=== PATIENT | male | born 1980 | race African-American/Black ===

== ENCOUNTER 2017-01-14 12:04 | Emergency (ER) | payer SELFPAY ==
[~2017-01-14] VITALS: Ht 170.2 cm; Wt 104.3 kg
[2017-01-14 12:16] VITALS: BP 154/68
[2017-01-14] MEDS ORDERED: LIDO:MAALOX:DONNATAL 1:1:1 15 ML SINGLE DOSE SWSW ONE (12:30)
[2017-01-14 12:44] LABS: BASO # 0.1 x10^3/uL (0.0-0.2); BASO % 1 % (0-3); EOS % 3 % (0-3); HEMATOCRIT 36.3 % (39.0-53.0); HEMOGLOBIN 12.4 g/dL (13.0-17.5); LYMPH # 2.2 x10^3/uL (1.0-4.8); LYMPH % 40 % (24-48); MEAN CORPUSCULAR HEMOGLOBIN 27 pg (25-35); MEAN CORPUSCULAR HGB CONC 34 g/dL (31-37); MEAN CORPUSCULAR VOLUME 80 fL (79-100); MONO % 6 % (0-9); NEUT % 50 % (31-73); PLATELET COUNT 198 x10^3/uL (140-400); RED BLOOD COUNT 4.52 x10^6/uL (4.30-5.70); RED CELL DISTRIBUTION WIDTH 13.5 % (11.5-14.5); WHITE BLOOD COUNT 5.5 x10^3/uL (4.0-11.0)
[2017-01-14 12:49] LABS: NEG OBC FOB NEG; POS OBC FOB POS
[2017-01-14 12:55] LABS: CALCIUM 8.9 mg/dL (8.5-10.1); CREATININE 0.8 mg/dL (0.7-1.3); GFR 109.4; POTASSIUM 3.8 mmol/L (3.5-5.1)
[2017-01-14] MEDS ORDERED: FAMO40TA57 PO (12:56)
--- NOTE | 2017-01-14 12:56 | PHYS DOC ---
Past Medical History Past Medical History: Hypertension Additional Past Surgical Histo: LYMPHNODE REMOVAL IN 1994 Alcohol Use: None Drug Use: Marijuana Adult General Chief Complaint Chief Complaint: ABDOMINAL PAIN HPI HPI 36-year-old male presenting the emergency department with epigastric abdominal pain and bright red blood per rectum. He states that this started approximately 2 hours ago. He has had a burning pain in his epigastrium that is mild intermittent nonradiating and without alleviating factors. He otherwise has a history of hypertension and is otherwise healthy. Review of systems is negative for chest pain shortness of breath fevers chills nausea vomiting. All other review of systems is negative unless otherwise noted in history of present illness. Review of Systems Review of Systems SEE ABOVE. Current Medications Current Medications Current Medications Medications (Trade) Dose Ordered Sig/Mavis Start Time Stop Time Status Last Admin Dose Admin Multi-Ingredient Mouthwash/Gargle (Gi Cocktail Single Dose) 15 ml 1X ONCE 01/14/17 12:30 01/14/17 12:57 DC Allergies Allergies Allergies Coded Allergies Type Severity Reaction Last Updated Verified No Known Drug Allergies 01/14/17 No Physical Exam Physical Exam Constitutional: Well developed, well nourished, no acute distress, non-toxic appearance. HENT: Normocephalic, atraumatic, bilateral external ears normal, oropharynx moist, no oral exudates, nose normal. [] Eyes: PERRLA, EOMI, conjunctiva normal, no discharge. Neck: Normal range of motion, no tenderness, supple, no stridor. [] Cardiovascular:Heart rate regular rhythm, no murmur Lungs & Thorax: Bilateral breath sounds clear to auscultation [] Abdomen:Soft nontender abdomen without rebound tenderness or guarding present. Negative McBurneys point. Negative Steward sign. No ecchymosis present. Rectal exam showed no obvious hemorrhoid. Stool on gross specimen was visually nonbloody. Skin: Warm, dry, no erythema, no rash. Back: No tenderness, no CVA tenderness. [] Extremities: No tenderness, no cyanosis, no clubbing, ROM intact, no edema. Neurologic: Alert and oriented X 3, normal motor function, normal sensory function, no focal deficits noted. [] Psychologic: Affect normal, judgement normal, mood normal. [] Current Patient Data Vital Signs Vital Signs Date Time Temp Pulse Resp B/P (MAP) Pulse Ox O2 Delivery O2 Flow Rate FiO2 01/14/17 12:13 98.1 82 14 154/68 (96) 99 Room Air 98.1 Lab Values Laboratory Tests Test 01/14/17 12:25 01/14/17 12:35 Stool Occult Blood Positive (NEG) White Blood Count 5.5 x10^3/uL (4.0-11.0) Red Blood Count 4.52 x10^6/uL (4.30-5.70) Hemoglobin 12.4 g/dL (13.0-17.5) L Hematocrit 36.3 % (39.0-53.0) L Mean Corpuscular Volume 80 fL (79-100) Mean Corpuscular Hemoglobin 27 pg (25-35) Mean Corpuscular Hemoglobin Concent 34 g/dL (31-37) Red Cell Distribution Width 13.5 % (11.5-14.5) Platelet Count 198 x10^3/uL (140-400) Neutrophils (%) (Auto) 50 % (31-73) Lymphocytes (%) (Auto) 40 % (24-48) Monocytes (%) (Auto) 6 % (0-9) Eosinophils (%) (Auto) 3 % (0-3) Basophils (%) (Auto) 1 % (0-3) Neutrophils # (Auto) 2.7 x10^3uL (1.8-7.7) Lymphocytes # (Auto) 2.2 x10^3/uL (1.0-4.8) Monocytes # (Auto) 0.3 x10^3/uL (0.0-1.1) Eosinophils # (Auto) 0.2 x10^3/uL (0.0-0.7) Basophils # (Auto) 0.1 x10^3/uL (0.0-0.2) Sodium Level 142 mmol/L (136-145) Potassium Level 3.8 mmol/L (3.5-5.1) Chloride Level 104 mmol/L (98-107) Carbon Dioxide Level 27 mmol/L (21-32) Anion Gap 11 (6-14) Blood Urea Nitrogen 9 mg/dL (8-26) Creatinine 0.8 mg/dL (0.7-1.3) Estimated GFR (Cockcroft-Gault) 109.4 Glucose Level 161 mg/dL (70-99) H Calcium Level 8.9 mg/dL (8.5-10.1) Total Bilirubin 0.2 mg/dL (0.2-1.0) Direct Bilirubin 0.1 mg/dL (0.0-0.2) Aspartate Amino Transferase (AST) 22 U/L (15-37) Alanine Aminotransferase (ALT) 51 U/L (16-63) Alkaline Phosphatase 92 U/L (46-116) Total Protein 7.5 g/dL (6.4-8.2) Albumin 3.5 g/dL (3.4-5.0) Lipase 243 U/L (73-393) Laboratory Tests 01/14/17 12:35 Laboratory Tests 01/14/17 12:35 EKG EKG [] Radiology/Procedures Radiology/Procedures [] Course & Med Decision Making Course & Med Decision Making Pertinent Labs and Imaging studies reviewed. (See chart for details) 36-year-old male presenting to the emergency department with epigastric abdominal burning and hematochezia. Triage vital signs afebrile normal heart rate. Mild hypertension. Pertinent physical exam findings showed a soft nontender abdomen with visually grossly non-bloody stool. fecal occult pos. Labs were sent. CBC shows mild anemia. GI cocktail given. On reexamination he was feeling better. I recommended the patient follow up with his primary care physician for outpatient further evaluation workup and care over the next 2-3 days. The patient was then discharged home in stable condition to follow up with their primary care physician over the next 2-3 days. They were to return if their symptoms worsened or if they were concerned for any reason. Face-to- face discharge instructions and return precautions were given. Patient's questions were answered to their satisfaction. Patient is comfortable plan. Dragon Disclaimer Dragon Disclaimer This electronic medical record was generated, in whole or in part, using a voice recognition dictation system. Departure Departure Impression: Primary Impression: Abdominal pain Additional Impression: Hematochezia Disposition: 01 HOME, SELF-CARE Condition: STABLE Referrals: FAITH KIRKPATRICK MD, SCOTT S MD Patient Instructions: Abdominal Pain, Gastrointestinal Bleeding Additional Instructions: Thank you for allowing us to participate in your care today. Followup with your primary care physician in 3 days if your symptoms do not improve. If you do not have a primary care provider you can ask for a list of our primary care providers. Return to the emergency department you have any new or concerning findings. This should be evaluated by the primary care physician and any necessary consulting services for continued management within a few days after discharge. Return to emergency room if you have any new or concerning symptoms including but not limited to fever, chills, nausea, vomiting, intractable pain, any new rashes, chest pain, shortness of air, uncontrolled bleeding, difficulty breathing, and/or vision loss. Scripts Famotidine (PEPCID) 40 Mg Tablet 40 MG PO HS, #14 TAB 0 Refills Prov: RAYNA SIMPSON MD 01/14/17 Problem Qualifiers RAYNA SIMPSON MD January 14, 2017 12:56
[2017-01-14 13:01] LABS: ALBUMIN 3.5 g/dL (3.4-5.0); DIRECT BILIRUBIN 0.1 mg/dL (0.0-0.2); TOTAL BILIRUBIN 0.2 mg/dL (0.2-1.0); TOTAL PROTEIN 7.5 g/dL (6.4-8.2)
== END 2017-01-14 13:39 | disposition home or self-care (01) ==
LOC: ER 12:04
DX: R10.13 Epigastric pain (principal); K92.1 Melena; I10 Essential (primary) hypertension; F12.10 Cannabis abuse, uncomplicated
CPT/HCPCS: 36415; 80048; 80076; 82274; 83690; 85027; 99284